=== PATIENT | male | born 1990 | race Caucasian/White ===

== ENCOUNTER 2019-10-13 16:21 | Emergency (ER) | payer MEDICAID ==
[~2019-10-13] VITALS: Ht 175.3 cm; Wt 77.2 kg
[2019-10-13 16:29] VITALS: BP 122/69
--- NOTE | 2019-10-13 17:24 | NUR ---
PA GRADY AT BEDSIDE
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
== END 2019-10-13 18:33 | disposition home or self-care (01) ==
LOC: MED 16:21
DX: S61.402A Unspecified open wound of left hand, initial encounter (principal); Y04.1XXA Assault by human bite, initial encounter; Y93.89 Activity, other specified; Y92.89 Other specified places as the place of occurrence of the external cause; Y99.8 Other external cause status
CPT/HCPCS: 73130; 90471; 90715; 99283; Q0092